=== PATIENT | male | born 1980 | race Caucasian/White ===

== ENCOUNTER 2018-06-20 11:16 | Emergency (ER) | payer OTHER ==
[~2018-06-20] VITALS: Ht 175.3 cm; Wt 61.2 kg
[~2018-06-20 11:16] MED LIST: ACET500; AMOCLA875 PO; AMOX500 PO; ASPI325; CIPHYDOTSU OT; CYCL10 PO; HYDACE5 PO; IBUP800 PO; METPRE4DP PO; NAPR500 PO; OLAN5 PO; PENVK250 PO; PENVK500 PO; RXCYCL10 PO; RXHYDACE PO; RXTRAM50 PO; TRAM50 PO
[2018-06-20 13:50] LABS: Source, Urine Clean Catch
[2018-06-20 13:55] LABS: BASOPHILS ABSOLUTE AUTO 0.09 K/mm3 (0.00-0.23); BASOPHILS PERCENT AUTO 1 % (0-2); EOSINOPHILS ABSOLUTE AUTO 0.37 K/mm3 (0.00-0.68); EOSINOPHILS PERCENT AUTO 2 % (0-6); Hematocrit 41.1 % (37.0-53.0); Hemoglobin 13.2 g/dL (13.5-17.5); IMMATURE GRAN ABSOLUTE AUTO 0.08 K/mm3 (0.00-0.10); IMMATURE GRAN PERCENT AUTO 1 % (0-1); LYMPHOCYTES ABSOLUTE AUTO 3.22 K/mm3 (0.84-5.20); LYMPHOCYTES PERCENT AUTO 19 % (21-46); MONOCYTES ABSOLUTE AUTO 1.22 K/mm3 (0.16-1.47); MONOCYTES PERCENT AUTO 7 % (4-13); Mean Corpuscular HGB 29.2 pg (26.0-34.0); Mean Corpuscular HGB Conc 32.1 g/dL (31.5-36.5); Mean Corpuscular Volume 91 fL (80-100); Mean Platelet Volume 8.5 fL (9.1-12.4); NEUTROPHILS ABSOLUTE AUTO 12.17 K/mm3 (1.96-9.15); NEUTROPHILS PERCENT AUTO 71 % (41-73); Platelet Count 296 K/mm3 (150-400); RDW Coefficient Variation 12.5 % (11.7-14.2); RDW Standard Deviation 41.3 fL (35.1-46.3); Red Blood Cell Count 4.52 M/mm3 (4.30-5.90); White Blood Cell Count 17.15 K/mm3 (4.00-11.30)
[2018-06-20 13:58] LABS: Appearance, Urine Clear (Clear); Bilirubin, Urine Neg (Neg); Blood, Urine 5+ (Neg); Color, Urine Yellow (P-Yellow); Glucose Qualitative, Urine Neg (Neg); Ketones, Urine Neg (Neg); Leukocyte Esterase, Urine 3+ (Neg); Nitrite, Urine Pos (Neg); Protein, Urine 1+ (Neg); Specific Gravity, Urine 1.025 (1.003-1.022); Urobilinogen, Urine 1+ (Normal)
[2018-06-20 14:05] LABS: White Blood Cells, Urine 25-50 /hpf (0-5)
[2018-06-20 14:07] LABS: Bacteria Rare /hpf; Squamous Epithelial Cells Few /hpf (Few)
[2018-06-20 14:15] LABS: Anion Gap 8 mmol/L (6-16); Blood Urea Nitrogen 13 mg/dL (8-24); Bun/Creatinine Ratio 14.8 (12.0-20.0); CO2, Blood 26 mmol/L (21-32); Calcium, Blood 8.5 mg/dL (8.5-10.1); Chloride, Blood 107 mmol/L (98-108); Creatinine, Blood 0.88 mg/dL (0.60-1.20); Glomerular Filtration Rate >60 (60-); Glucose, Blood 89 mg/dL (70-99); Potassium, Blood 3.5 mmol/L (3.5-5.5); Sodium, Blood 141 mmol/L (136-145)
[2018-06-20] MEDS ORDERED: LEVFLO500 PO (14:43)
== END 2018-06-20 17:10 | disposition home or self-care (01) ==
LOC: ER 11:16
PROVIDERS: Physician Assistant
DX: N45.3 Epididymo-orchitis (principal); Z59.8 Other problems related to housing and economic circumstances; F17.210 Nicotine dependence, cigarettes, uncomplicated
CPT/HCPCS: 36415; 76870; 80048; 81001; 85025; 87077; 87086; 87186; 96360; 96372; 99284-25; J1885; J7030

== ENCOUNTER 2021-05-28 17:15 | Inpatient (IN) | payer OTHER ==
[~2021-05-28] VITALS: Ht 175.3 cm; Wt 64.7 kg
[~2021-05-28 17:15] MED LIST changes: +LEVFLO500 PO; +Norco 5-325 Ta1 EACH PO
[2021-05-28 18:27] LABS: BASOPHILS ABSOLUTE AUTO 0.11 K/mm3 (0.00-0.23); BASOPHILS PERCENT AUTO 1 % (0-2); EOSINOPHILS ABSOLUTE AUTO 0.13 K/mm3 (0.00-0.68); EOSINOPHILS PERCENT AUTO 1 % (0-6); Hemoglobin 15.5 g/dL (13.5-17.5); IMMATURE GRAN ABSOLUTE AUTO 0.03 K/mm3 (0.00-0.10); IMMATURE GRAN PERCENT AUTO 0 % (0-1); LYMPHOCYTES ABSOLUTE AUTO 1.41 K/mm3 (0.84-5.20); LYMPHOCYTES PERCENT AUTO 14 % (21-46); MONOCYTES PERCENT AUTO 13 % (4-13); Mean Corpuscular HGB 29.4 pg (26.0-34.0); Mean Corpuscular HGB Conc 33.7 g/dL (31.5-36.5); Mean Corpuscular Volume 87 fL (80-100); Mean Platelet Volume 8.6 fL (9.1-12.4); NEUTROPHILS PERCENT AUTO 70 % (41-73); Platelet Count 267 K/mm3 (150-400); RDW Coefficient Variation 12.8 % (11.7-14.2); RDW Standard Deviation 41.4 fL (35.1-46.3); Red Blood Cell Count 5.27 M/mm3 (4.30-5.90); White Blood Cell Count 10.08 K/mm3 (4.00-11.30)
[2021-05-28 19:17] LABS: Alanine Aminotransfer (ALT/SGP 42 U/L (12-78); Albumin, Blood 3.7 g/dL (3.4-5.0); Alk Phos 107 U/L (50-136); Anion Gap 8 mmol/L (6-16); Aspartate Aminotrans (AST/SGOT 41 U/L (12-37); Bilirubin, Total 0.8 mg/dL (0.1-1.0); Blood Urea Nitrogen 27 mg/dL (8-24); Bun/Creatinine Ratio 29.1 (12.0-20.0); CO2, Blood 23 mmol/L (21-32); Calcium, Blood 8.6 mg/dL (8.5-10.1); Chloride, Blood 108 mmol/L (98-108); Creatinine, Blood 0.93 mg/dL (0.60-1.20); Globulin, Blood 3.8 g/dL (2.2-4.0); Glomerular Filtration Rate >60 (60-); Glucose, Blood 104 mg/dL (70-99); Potassium, Blood 4.1 mmol/L (3.5-5.5); Sodium, Blood 139 mmol/L (136-145); Total Protein, Blood 7.5 g/dL (6.4-8.2)
[2021-05-28 21:24] LABS: pH Blood Venous 7.37 (7.34-7.37)
[2021-05-28 21:25] LABS: Base Excess Venous -1.4 mmol/L; Bicarbonate Venous 23.3 mmol/L (24.0-30.0); PO2 Venous 171 mmHg (38-42)
--- NOTE | 2021-05-29 01:26 | NUR ---
ASSUMED CARE OF PT AT AROUND 2330. DENIES ANY PAIN CURRENTLY, BUT DOES SAY HE GETS CHEST MUSCLE PAIN FROM COUGHING. MAINTAINS OVER 92% ON 3L NC, LS DIM T/O. SCATTERED SCABS/ABRASIONS T/O. PATIENT LIVES IN A TENT CURRENTLY. WILL UPDATE CHANGES OCCUR, PATIENT IS VERY TIRED.
[2021-05-29 05:09] LABS: BASOPHILS ABSOLUTE AUTO 0.03 K/mm3 (0.00-0.23); BASOPHILS PERCENT AUTO 1 % (0-2); EOSINOPHILS PERCENT AUTO 3 % (0-6); Hematocrit 43.7 % (37.0-53.0); Hemoglobin 14.2 g/dL (13.5-17.5); IMMATURE GRAN ABSOLUTE AUTO 0.04 K/mm3 (0.00-0.10); IMMATURE GRAN PERCENT AUTO 1 % (0-1); LYMPHOCYTES ABSOLUTE AUTO 0.67 K/mm3 (0.84-5.20); LYMPHOCYTES PERCENT AUTO 11 % (21-46); MONOCYTES ABSOLUTE AUTO 0.22 K/mm3 (0.16-1.47); MONOCYTES PERCENT AUTO 4 % (4-13); Mean Corpuscular HGB 29.3 pg (26.0-34.0); Mean Corpuscular HGB Conc 32.5 g/dL (31.5-36.5); Mean Corpuscular Volume 90 fL (80-100); Mean Platelet Volume 8.7 fL (9.1-12.4); NEUTROPHILS ABSOLUTE AUTO 4.78 K/mm3 (1.96-9.15); NEUTROPHILS PERCENT AUTO 80 % (41-73); Platelet Count 207 K/mm3 (150-400); RDW Standard Deviation 42.7 fL (35.1-46.3); Red Blood Cell Count 4.85 M/mm3 (4.30-5.90); White Blood Cell Count 5.94 K/mm3 (4.00-11.30)
[2021-05-29 06:26] LABS: Alanine Aminotransfer (ALT/SGP 38 U/L (12-78); Albumin, Blood 3.1 g/dL (3.4-5.0); Alk Phos 94 U/L (50-136); Anion Gap 8 mmol/L (6-16); Aspartate Aminotrans (AST/SGOT 39 U/L (12-37); Bilirubin, Total 0.3 mg/dL (0.1-1.0); Blood Urea Nitrogen 30 mg/dL (8-24); Bun/Creatinine Ratio 31.5 (12.0-20.0); CO2, Blood 22 mmol/L (21-32); Calcium, Blood 7.9 mg/dL (8.5-10.1); Chloride, Blood 112 mmol/L (98-108); Creatinine, Blood 0.95 mg/dL (0.60-1.20); Globulin, Blood 3.1 g/dL (2.2-4.0); Glomerular Filtration Rate >60 (60-); Glucose, Blood 129 mg/dL (70-99); Potassium, Blood 4.4 mmol/L (3.5-5.5); Sodium, Blood 142 mmol/L (136-145); Total Protein, Blood 6.2 g/dL (6.4-8.2)
[2021-05-29 07:18] LABS: U Amphetamine Screen DETECTED; U Barbituate Screen Not Detected; U Benzodiazapine Screen Not Detected; U Buprenorphine Screen Not Detected; U Cannabinoids Screen Not Detected; U Cocaine Screen Not Detected; U Methadone Screen Not Detected; U Methamphetamine Screen DETECTED; U Opiates Screen Not Detected; U Oxycodone Screen Not Detected; U Phencyclidine Screen Not Detected; U Propoxyphene Screen Not Detected
--- NOTE | 2021-05-29 11:36 | NUR ---
Upon recieving and admit trigger, I visit patient. Patient openly talks about his struggles with homelessness, family unit complications, and his emotional ups and downs. Patient shares about his spiritual journey and his personal connection with God. Patient states that his higher power is what has enabled him to survive his own poor choices. Patient talks about his fears in regards to COVID and his loneliness from his sepration from his "," Ena. She is currently in [place] and he is not sure about her return date. I hear confession, encourage self-care, and provide therapeutic listening, spiritual guidance and prayer. Patient responds well and shows signs of increased hope. Patient voices appreciation for the time and care given. If further visits are possible I will assist patient on the best paths toward emotional and spiritual health.
--- NOTE | 2021-05-29 16:34 | NUR ---
PT REMAINS A&OX4. VSS. AFEBRILE. NO C/O PAIN. AUO. NO BM. TOLERATING CURRENT DIET. UNABLE TO WEAN CURRENT O2 SETTINGS- DENIES SOB, VANCE. ABX ADJUSTED. FREQUENT ROUNDS TO ENSURE PT SAFETY. PT IN NO APPARENT DISTRESS AT THIS TIME. WILL CONTINUE TO MONITOR UNTIL TRANSFER OF CARE TO ONCOMING RN.
--- NOTE | 2021-05-29 23:12 | NUR ---
ASSUMED CARE OF PT AT 1900. PATIENT WAS SLEEPING. MAINTAINING OVER 92% ON 3L NC, DIM T/O. PATIENT HAS COUGHING EPISODES, BUT DOESN'T DESAT WITH THOSE EPISODES. WILL UPDATE CHANGES OCCUR.
[2021-05-30 04:25] LABS: BASOPHILS ABSOLUTE AUTO 0.03 K/mm3 (0.00-0.23); BASOPHILS PERCENT AUTO 0 % (0-2); EOSINOPHILS ABSOLUTE AUTO 0.02 K/mm3 (0.00-0.68); EOSINOPHILS PERCENT AUTO 0 % (0-6); Hematocrit 42.3 % (37.0-53.0); Hemoglobin 13.7 g/dL (13.5-17.5); IMMATURE GRAN ABSOLUTE AUTO 0.03 K/mm3 (0.00-0.10); IMMATURE GRAN PERCENT AUTO 0 % (0-1); LYMPHOCYTES ABSOLUTE AUTO 1.93 K/mm3 (0.84-5.20); LYMPHOCYTES PERCENT AUTO 20 % (21-46); MONOCYTES ABSOLUTE AUTO 1.39 K/mm3 (0.16-1.47); MONOCYTES PERCENT AUTO 14 % (4-13); Mean Corpuscular HGB 29.1 pg (26.0-34.0); Mean Corpuscular HGB Conc 32.4 g/dL (31.5-36.5); Mean Corpuscular Volume 90 fL (80-100); Mean Platelet Volume 8.9 fL (9.1-12.4); NEUTROPHILS ABSOLUTE AUTO 6.23 K/mm3 (1.96-9.15); NEUTROPHILS PERCENT AUTO 65 % (41-73); Platelet Count 227 K/mm3 (150-400); RDW Coefficient Variation 12.8 % (11.7-14.2); RDW Standard Deviation 42.5 fL (35.1-46.3); White Blood Cell Count 9.63 K/mm3 (4.00-11.30)
[2021-05-30 05:15] LABS: Anion Gap 7 mmol/L (6-16); Blood Urea Nitrogen 26 mg/dL (8-24); Bun/Creatinine Ratio 28.4 (12.0-20.0); CO2, Blood 27 mmol/L (21-32); Calcium, Blood 8.1 mg/dL (8.5-10.1); Chloride, Blood 108 mmol/L (98-108); Creatinine, Blood 0.91 mg/dL (0.60-1.20); Glomerular Filtration Rate >60 (60-); Glucose, Blood 98 mg/dL (70-99); Potassium, Blood 4.3 mmol/L (3.5-5.5); Sodium, Blood 142 mmol/L (136-145)
--- NOTE | 2021-05-30 17:30 | NUR ---
SHIFT SUMMARY; ASSUMED CARE AT 0700. A/A/OX4 DURING SHIFT. SAT IN RECLINER FOR ENTIRE SHIFT. BEDDING CHANGED AND SHOWER TODAY. 4L 02 VIA NC TO MAINTAIN SATS OF 94%. INDEPNDANT IN ROOM WITH SBA. REPOSITIONS SELF NEEDED. URINAL AT BEDSIDE. NO ACUTE MEDICAL CHANGES, WILL CONTINUE TO MONITOR AND TREAT UNTIL CHANGE OF SHIFT.
[2021-05-31 03:42] LABS: BASOPHILS ABSOLUTE AUTO 0.04 K/mm3 (0.00-0.23); BASOPHILS PERCENT AUTO 1 % (0-2); EOSINOPHILS ABSOLUTE AUTO 0.07 K/mm3 (0.00-0.68); EOSINOPHILS PERCENT AUTO 1 % (0-6); Hematocrit 42.5 % (37.0-53.0); IMMATURE GRAN ABSOLUTE AUTO 0.03 K/mm3 (0.00-0.10); IMMATURE GRAN PERCENT AUTO 0 % (0-1); LYMPHOCYTES ABSOLUTE AUTO 2.66 K/mm3 (0.84-5.20); LYMPHOCYTES PERCENT AUTO 30 % (21-46); MONOCYTES ABSOLUTE AUTO 1.03 K/mm3 (0.16-1.47); MONOCYTES PERCENT AUTO 12 % (4-13); Mean Corpuscular HGB 29.2 pg (26.0-34.0); Mean Corpuscular HGB Conc 32.9 g/dL (31.5-36.5); Mean Corpuscular Volume 89 fL (80-100); Mean Platelet Volume 8.8 fL (9.1-12.4); NEUTROPHILS ABSOLUTE AUTO 4.98 K/mm3 (1.96-9.15); NEUTROPHILS PERCENT AUTO 57 % (41-73); Platelet Count 227 K/mm3 (150-400); RDW Coefficient Variation 12.6 % (11.7-14.2); RDW Standard Deviation 41.5 fL (35.1-46.3); White Blood Cell Count 8.81 K/mm3 (4.00-11.30)
--- NOTE | 2021-05-31 06:21 | NUR ---
END OF SHIFT SUMMARY: PATIENT HAS BEEN SWITCHED TO MED NO TELE DURING 05/30/2021. PATIENT HAS BEEN ON AND OFF NC 4L AND HAS BEEN SATURATING AT 92-96% SPO2. SOME UPPER RIGHT WHEEZE WITH DIM LEFT SIDE. SOCIAL SERVICE CONSULT NEEDED. DROPLET PRECAUITIONS. GREAT URINE OUTPUT. DENIES ANY CHEST PAIN OR SOB. PATIENT RESTED THROUGHOUT THE NIGHT. WILL CONTINUE TO MONITOR
--- NOTE | 2021-05-31 18:33 | NUR ---
PT SUMMARY: NO ACUTE CHANGE FOR THE SHIFT, VITALS REMAINED STABLE. ON1L OF O2 VIA NASAL CANNULA SATS MAINTAINED ABOVE 90%, BREATHING TX PER RT. PT HAS BEEN INDEPENDENT IN THE ROOM, DENIES PAIN FOR THE SHIFT. ADEQUATE FOOD AND FLUID INTAKE. REMDESIVIR 3/4 DOSE GIVEN TODAY. NO OTHER ISSUES ENCOUNTERED, PT REMAINEDIN BED, CALLS APPROPRIATELY. CALL LIGHTS IN REACH WILL MONITOR
--- NOTE | 2021-06-01 03:56 | NUR ---
SHIFT SUMMARY PT IS A 41 Y/O MALE, ADMITTED FOR PNA R/T COVID-19. HE IS A&O X 4, INDEPENDENT IN THE ROOM. NO C/O PAIN OR NAUSEA. PT STARTED SHIFT ON 1L VIA NC, SATTING IN THE 90S. PT DESATTED WHEN FIRST FALLING ASLEEP TO THE MID 80S, NC KEPT FALLING OUT OF HIS NOSE. PT O2 WAS INCREASED BY CHARGE NURSE RAFY. BY END OF SHIFT, PT SUSTAINING AT 91-92% ON RA WHILE SLEEPING. ALL OTHER VITALS STABLE. NO ACUTE CHANGES IN PT CONDITION NOTED DURING THE NIGHT. WILL CONTINUE TO MONITOR AND TREAT PER EMAR UNTIL HAND OFF TO DAY SHIFT RN.
--- NOTE | 2021-06-01 14:40 | NUR ---
DISCHARGE: PT COMPLETES LAST DOSE OF REMDESIVIR. DR ALMANZAR TO AND FROM BEDSIDE TO DISCUSS PLAN OF DISHCARGE. PT PROVIDED WITH DC INSTRUCTIONS AND PAPERWORK. IV ACCESS DC'D WNL. ALL QUESTIONS ANSWERED, PT ASSISTED FROM UNIT VIA WHEELCHAIR IN NO ACUTE DISTRESS.
== END 2021-06-01 14:30 | disposition home or self-care (01) | DRG 871 ==
LOC: ER 17:15 → ERHOLD 22:05 → PCU 23:27
PROVIDERS: Student in an Organized Health Care Education/Training Program; ADMIT Family Medicine
PROC: 8E0ZXY6 Isolation (ICD-10-PCS; principal; 2021-05-28)
PROC: XW033E5 Introduction of Remdesivir Anti-infective into Peripheral Vein, Percutaneous Approach, New Technology Group 5 (ICD-10-PCS; 2021-05-28)
PROC: 3E0333Z Introduction of Anti-inflammatory into Peripheral Vein, Percutaneous Approach (ICD-10-PCS; 2021-05-28)
DX: A41.89 Other specified sepsis (principal); U07.1 COVID-19; J12.82 Pneumonia due to coronavirus disease 2019; J96.01 Acute respiratory failure with hypoxia; J15.9 Unspecified bacterial pneumonia; J43.9 Emphysema, unspecified; F17.210 Nicotine dependence, cigarettes, uncomplicated; Z90.49 Acquired absence of other specified parts of digestive tract; Z59.00 Homelessness unspecified; Z71.6 Tobacco abuse counseling; F15.10 Other stimulant abuse, uncomplicated; Z71.51 Drug abuse counseling and surveillance of drug abuser
CPT/HCPCS: 36415; 71046; 80048; 80053; 82803; 83605; 84145; 85025; 87040; 94640; 94664; 94760; 94762; 96365; 96375; 97116; 97162; 97165; 97530; 99285-25; A9270; J0696; J1100; J1650; J7030; J7050; J7512

== ENCOUNTER 2021-12-09 11:08 | Observation (INO) | payer OTHER ==
[~2021-12-09] VITALS: Ht 175.3 cm; Wt 78.3 kg
[2021-12-09 12:10] LABS: BASOPHILS ABSOLUTE AUTO 0.06 K/mm3 (0.00-0.23); BASOPHILS PERCENT AUTO 0 % (0-2); EOSINOPHILS ABSOLUTE AUTO 0.02 K/mm3 (0.00-0.68); EOSINOPHILS PERCENT AUTO 0 % (0-6); Hemoglobin 18.4 g/dL (13.5-17.5); IMMATURE GRAN ABSOLUTE AUTO 0.06 K/mm3 (0.00-0.10); IMMATURE GRAN PERCENT AUTO 0 % (0-1); LYMPHOCYTES ABSOLUTE AUTO 2.25 K/mm3 (0.84-5.20); LYMPHOCYTES PERCENT AUTO 14 % (21-46); MONOCYTES ABSOLUTE AUTO 1.73 K/mm3 (0.16-1.47); MONOCYTES PERCENT AUTO 11 % (4-13); Mean Corpuscular HGB 28.6 pg (26.0-34.0); Mean Corpuscular HGB Conc 31.6 g/dL (31.5-36.5); Mean Corpuscular Volume 91 fL (80-100); Mean Platelet Volume 9.3 fL (9.1-12.4); NEUTROPHILS ABSOLUTE AUTO 12.41 K/mm3 (1.96-9.15); NEUTROPHILS PERCENT AUTO 75 % (41-73); Platelet Count 228 K/mm3 (150-400); RDW Coefficient Variation 13.6 % (11.7-14.2); RDW Standard Deviation 45.4 fL (35.1-46.3); Red Blood Cell Count 6.43 M/mm3 (4.30-5.90); White Blood Cell Count 16.53 K/mm3 (4.00-11.30)
[2021-12-09 12:29] LABS: Albumin, Blood 2.5 g/dL (3.4-5.0); Albumin/Globulin Ratio 0.8 (0.8-1.8); Bilirubin, Total 2.2 mg/dL (0.1-1.0); Bun/Creatinine Ratio 19.6 (12.0-20.0); Calcium, Blood 8.1 mg/dL (8.5-10.1); Creatinine, Blood 1.02 mg/dL (0.60-1.20); Globulin, Blood 3.3 g/dL (2.2-4.0); Potassium, Blood 4.2 mmol/L (3.5-5.5); Total Protein, Blood 5.8 g/dL (6.4-8.2)
[2021-12-09 12:38] LABS: Hematocrit 58.2 % (37.0-53.0)
[2021-12-09 23:52] LABS: U Amphetamine Screen DETECTED; U Barbituate Screen Not Detected; U Benzodiazapine Screen Not Detected; U Buprenorphine Screen Not Detected; U Cannabinoids Screen Not Detected; U Cocaine Screen Not Detected; U Methadone Screen Not Detected; U Methamphetamine Screen DETECTED; U Opiates Screen Not Detected; U Oxycodone Screen Not Detected; U Phencyclidine Screen Not Detected; U Propoxyphene Screen Not Detected
--- NOTE | 2021-12-10 04:44 | NUR ---
SUMMARY: PT A/OX3 AND CALLS APPROPRIATELY TO SPECIFY NEEDS. HE IS OFTEN HEARD TALKING TO SELF IN ROOM BUT DOESN'T APPEAR TO BE HALLUCINATING. PT IS VERY PLEASANT AND COOPERATIVE MAJORITY OF TIME BUT CAN BECOME IRRITABLE AND AGGITATED WHEN STAFF ATTEMPT CARE HE DOESN'T WANT. PT INITIALLY WOULDN'T ALLOW CLOTHES OR DX TO BE REMOVED FOR THOROUGH SKIN ASSESSMENT BUT W/ENCOURAGEMENT, AND EDUCATION HE WAS COMPLIANT. PT PREMEDICATED FOR PAIN R/T SEVERE SUNBURN W/SCATTERED LARGE BLISTERS TO BACK. SKIN IS RED, HOT, DRY, PEELING AND EDEMATOUS FROM WAIST UP, WORSE TO BACK/R.FLANK. FENTANYL IV, TYLENOL PO AND TOPICAL LIDOCAINE UTILIZED PRN FOR PAIN CONTROL. HOURLY EYE GTTS RECIEVED FOR L.CORNEAL ULCER PER EMAR AND IT REMAINS SWOLLEN W/RED/YELLOW SCLERA AND WEAPING NOTED. PT SNORES DURING SLEEP AND APPEARS SOB W/EXERTION OR EATING BUT SPO2 WNL ON RA. HE USED URINAL WHILE SIDE LYING IN BED AND DENIED SUBSTANCE USE BUT UTOX WAS POSITIVE FOR METH/AMPHETAMINES. PT NSR/S.TACH ON TELEMETRY AND VSS/AFEBRILE. NO ACUTE CHANGES. WCTM AND REPORT TO DAY RN.
--- NOTE | 2021-12-10 18:06 | NUR ---
PATIENT A/OX3, UP INDEPENDENTLY IN ROOM. L EYE SWELLING AND REDNESS IMPROVING. LARGE BLISTERED AREAS TO BACK AND R FLANK FROM SUNBURN. ATTEMPTED TO REMOVE DRESSING AFTER HE HAD A SHOWER AND TAPE WAS PULLING SKIN OFF. PATIENT REFUSING TO LET ME CONTINUE TO TRY AND REMOVE WITH ADHESIVE REMOVER. SILVADENE CREAM AND LIDOCAINE GEL APPLIED TO TREAT. OXYCODONE GIVEN Q4 HOURS TO TREAT PAIN WITH GOOD RELIEF ALLOWING PATIENT TO REST. TELE AND IV D/C'D. PATIENT HAD D/C ORDERS, BUT UNABLE TO GET A MOTEL FOR THE PATIENT FOR THE NIGHT. TOLERATING REGULAR DIET. PRN O2 FOR SOB AFTER AMBULATING AND WHEN PAIN IS EXACERBATED. CAN BE IRRITABLE AND HOLLERS OUT AT TIMES.
--- NOTE | 2021-12-11 05:05 | NUR ---
PT MEDICATED FOR PAIN THIS SHIFT, VERY ANGRY ABOUT BEING AWOKEN FOR EYE DROPS. REFUSING THEM DURING THE NIGHT. VSS. LARGE BLISTER SUNBURNS TO BACK. CASE MANAGEMENT WORKING ON DISCHARGE, PT IS HOMELESS.
[2021-12-11 05:58] LABS: BASOPHILS ABSOLUTE AUTO 0.06 K/mm3 (0.00-0.23); BASOPHILS PERCENT AUTO 1 % (0-2); EOSINOPHILS ABSOLUTE AUTO 0.14 K/mm3 (0.00-0.68); EOSINOPHILS PERCENT AUTO 1 % (0-6); Hematocrit 51.6 % (37.0-53.0); Hemoglobin 15.7 g/dL (13.5-17.5); IMMATURE GRAN ABSOLUTE AUTO 0.05 K/mm3 (0.00-0.10); IMMATURE GRAN PERCENT AUTO 0 % (0-1); LYMPHOCYTES ABSOLUTE AUTO 2.61 K/mm3 (0.84-5.20); LYMPHOCYTES PERCENT AUTO 23 % (21-46); MONOCYTES ABSOLUTE AUTO 1.22 K/mm3 (0.16-1.47); MONOCYTES PERCENT AUTO 11 % (4-13); Mean Corpuscular HGB 28.4 pg (26.0-34.0); Mean Corpuscular HGB Conc 30.4 g/dL (31.5-36.5); Mean Corpuscular Volume 94 fL (80-100); Mean Platelet Volume 9.6 fL (9.1-12.4); NEUTROPHILS ABSOLUTE AUTO 7.43 K/mm3 (1.96-9.15); NEUTROPHILS PERCENT AUTO 65 % (41-73); Platelet Count 202 K/mm3 (150-400); RDW Coefficient Variation 13.9 % (11.7-14.2); RDW Standard Deviation 47.7 fL (35.1-46.3); Red Blood Cell Count 5.52 M/mm3 (4.30-5.90); White Blood Cell Count 11.51 K/mm3 (4.00-11.30)
[2021-12-11 06:21] LABS: Albumin, Blood 2.4 g/dL (3.4-5.0); Anion Gap 8 mmol/L (6-16); Blood Urea Nitrogen 32 mg/dL (8-24); Bun/Creatinine Ratio 29.1 (12.0-20.0); CO2, Blood 24 mmol/L (21-32); Calcium, Blood 8.2 mg/dL (8.5-10.1); Chloride, Blood 106 mmol/L (98-108); Glomerular Filtration Rate 86 (60-); Glucose, Blood 91 mg/dL (70-99); Magnesium, Blood 1.9 mg/dL (1.6-2.4); Phosphorus, Blood 3.9 mg/dL (2.5-4.9); Potassium, Blood 4.6 mmol/L (3.5-5.5); Sodium, Blood 138 mmol/L (136-145)
--- NOTE | 2021-12-11 17:29 | NUR ---
SHIFT SUMMARY PT A&O X 4. VSS. PT HAS BEEN LYING IN BED ON HIS SIDE THROUGHOUT SHIFT, UNABLE TO LIE ON BACK D/T PAIN OF SUNBURN. HE HAS NUMEROUS TINY BLISTERS ALL OVER HIS BACK WITH A FEW LARGE LIQ FILLED BLISTERS THE SIZE OF 1 DOLLAR COIN OR BIGGER. HE REFUSED APPLICATION OF MD PRESCRIBED OINTMENT TIL LATER IN THE AFTERNOON. HE WAS ONLY ABLE TO TOLERATE THE APPLICATION OF THE LIDOCAINE GEL. MEDICATED FOR PAIN JUST PRIOR TO ATTEMPT TO APPLY. HE HAS BEEN PLEASANT AND COOPERATIVE WITH ALL CARE. PLAN IS POSSIBLE DC TOMORROW. CASE MANAGEMENT IS CONSULTING.
--- NOTE | 2021-12-12 05:34 | NUR ---
PT IS ALERT, CAN BE EMOTIONAL AT TIMES, MEDICATED FOR PAIN FROM SUNBURN TO BACK WITH LARGE FLUID FILLED BLISTERS THIS SHIFT. REFUSING EYE DROPS AT NIGHT. DOES NOT WANT TO BE AWAKENED, BUT IF AWAKENED STILL REFUSES EYE DROPS. PT WOULD NOT ALLOW RN TO PUT MEDICATED CREAM ON BACK THIS SHIFT SCREAMIMG "DONT TOUCH MY BACK PLEASE".
--- NOTE | 2021-12-12 14:25 | NUR ---
MEDICATION REFUSAL PT HAS REFUSED EYE DROPS, LOVENOX AND CREAMS/GELS FOR HIS SUNBURNED BACK. HE STATES HE'S LYING IN THE POSITION THAT OFFERS THE BEST PAIN RELIEF AND DOESN'T WANT TO MOVE. OFFERED PAIN MEDICATION ALTHOUGH HE REPORTS IT DOESN'T HELP THAT MUCH WHEN HE NEEDS TO MOVE. HE HAS GOTTEN UP TO USE THE RESTROOM HOWEVER HE STATES IT TAKES EVERYTHING HE HAS TO GET UP. HE WON'T ALLOW NURSING STAFF TO APPLY THE CREAMS STATING IT IS TOO PAINFUL TO TOUCH HIS SKIN. HE REFUSED THE LOVENOX. ATTEMPTED TO EDUCATE REGARDING ALL OF THE ABOVE. JUST MEDICATED PT FOR PAIN AT HIS REQUEST. WILL ATTEMPT EYE DROPS ONCE PAIN MEDS HAVE TAKEN EFFECT.
[2021-12-12] MEDS ORDERED: OCUFLOX510 LEFTEYE (16:19)
[2021-12-12] MEDS ORDERED: OXYC5 PO (16:20)
[2021-12-12] MEDS ORDERED: TOBRAMYCIN5 ML LEFTEYE (16:20)
[2021-12-12] MEDS ORDERED: SILVER SULFADIA TOP (16:21)
--- NOTE | 2021-12-12 18:17 | NUR ---
DC HOME PT DC'D TO [facility]IA [facility] WITH ALL PERSONAL BELONGINGS. PT GIVEN HARD SCRIPT FOR PAIN MEDS. ALL MEDICATION SCRIPTS FAXED TO [facility]. NO PIV TO DC.
--- NOTE | 2021-12-12 18:45 | NUR ---
DC DC INSTRUCTIONS GIVEN TO PT. ALL CONCERNS & QUESTIONS ADDRESSED. SEE COMPUTER TYPESETTER'S NOTES REGARDING DETAILS OF DC ARRANGEMENTS.
== END 2021-12-12 18:01 | disposition home or self-care (01) ==
LOC: ER 11:08 → MEDS 11:09
PROVIDERS: Internal Medicine; Physician Assistant; ADMIT Internal Medicine
DX: H16.002 Unspecified corneal ulcer, left eye (principal); L55.9 Sunburn, unspecified; J44.9 Chronic obstructive pulmonary disease, unspecified; F17.210 Nicotine dependence, cigarettes, uncomplicated; D72.829 Elevated white blood cell count, unspecified; E86.0 Dehydration; F15.10 Other stimulant abuse, uncomplicated; Z59.00 Homelessness unspecified
CPT/HCPCS: 16030; 36415; 71045; 80053; 80069; 83735; 84484; 85025; 90714; 93005; 93010; 94760; 96361; 96374; 99284-25; A9270; G0378; J1650; J1885; J3010; J7030